=== PATIENT | male | born 1950 | race Hispanic/Latino ===

== ENCOUNTER 2020-12-13 14:11 | Emergency (ER) | payer MEDICARE ==
--- NOTE | 2020-12-13 15:37 | Emergency Department Report ---
ED Male HPI - General Chief complaint: Tube Replacement Stated complaint: URINARY INCONTIENCE Time Seen by Provider: 12/13/20 14:53 Source: patient, EMS Mode of arrival: Wheelchair Limitations: No Limitations - History of Present Illness Initial comments: CC: "THis catheter is blocked. HPI: This is a 70 yo male with hx of bladder cancer, urinary retention and ALS who presents urinary retention. Patient has indwelling sosa catheter which is not draining. No urine output for 12 hours. Severe discomfort in pelvic region. No fever. No back pain. Recently tested positive for COVID 19. Patient is currently taking antibiotics. Patient had Sosa catheter placed for the first time on Monday at [facility]. Complaint: other (Pelvic discomfort, urinary retention) -: Gradual, This morning (12 hours ago) Severity: severe Quality: dull Consistency: constant Improves with: none Worsens with: none indwelling catheter denies other symptoms - Related Data Allergies Allergy/AdvReac Type Severity Reaction Status Date / Time No Known Allergies Allergy Unverified 12/13/20 16:25 ED Review of Systems ROS: Stated complaint: URINARY INCONTIENCE Other details as noted in HPI Comment: All other systems reviewed and negative Constitutional: denies: fever, malaise Respiratory: denies: cough, shortness of breath Gastrointestinal: denies: abdominal pain, nausea, vomiting Genitourinary: hematuria, other (Retention) ED Past Medical Hx - Past Medical History Previous Medical History?: Yes Additional medical history: ALS ED Physical Exam - General Limitations: No Limitations General appearance: alert, in no apparent distress, other (Walking around room and appears in discomfort) - Head Head exam: Present: atraumatic, normocephalic - Eye Eye exam: Present: normal appearance - ENT ENT exam: Present: mucous membranes moist - Neck Neck exam: Present: normal inspection, full ROM - Respiratory Respiratory exam: Present: normal lung sounds bilaterally. Absent: respiratory distress, wheezes, rales, rhonchi - Cardiovascular Cardiovascular Exam: Present: regular rate, normal rhythm, normal heart sounds. Absent: systolic murmur, diastolic murmur, rubs, gallop - GI/Abdominal GI/Abdominal exam: Present: soft, normal bowel sounds. Absent: distended, tenderness, guarding, rebound - Rectal Rectal exam: Present: deferred - exam: Present: other (Sosa catheter in place, leg bag contains bloody urine) - Extremities Exam Extremities exam: Present: normal inspection - Neurological Exam Neurological exam: Present: alert, oriented X3, normal gait - Psychiatric Psychiatric exam: Present: normal affect, normal mood - Skin Skin exam: Present: warm, dry, intact, normal color. Absent: rash ED Course Vital Signs 12/13/20 12/13/20 14:16 17:00 Temperature 98.7 F 99.3 F Pulse Rate 138 H 130 H Respiratory 24 19 Rate Blood Pressure 146/84 Blood Pressure 113/67 [Right] O2 Sat by Pulse 95 92 Oximetry ED Medical Decision Making - Medical Decision Making Patient became much more comfortable after larger Sosa catheter 18 Turkmen was inserted: 300 cc of hematuria collected in the retention bag.. Patient has urinary retention due to hematuria. Patient is considering hospice therapy. He has metastatic bladder cancer. He also has been battling ALS for the past 8 years since 2011. Recently diagnosed with COVID-19 infection. Consequently his caregiver is unable to provide close attention. Patient is followed at [facility]. His directed EMS to our hospital for second opinion regarding his care. I explained to the patient that we do not have urological emergent coverage at this hospital. He understands that we will have to transfer him if he has recurrent obstruction of his Sosa catheter. Nursing marketing team lead demonstrated how to irrigate the Sosa catheter. Patient does not appear toxic. However he is persistently tachycardic considering patient's terminal illnesses and palliative care status, further evaluation deferred with shared decision making. Patient has follow-up with urologist tomorrow. He understands to return to the emergency department Critical care attestation.: If time is entered above; I have spent that time in minutes in the direct care of this critically ill patient, excluding procedure time. ED Disposition Clinical Impression: COVID-19, Obstructed Sosa catheter, Hematuria, Bladder cancer Disposition: DC-01 TO HOME OR SELFCARE Is pt being admited?: No Does the pt Need Aspirin: No Condition: Stable
[2020-12-13] MEDS ORDERED: LIDOCAINE 2% UROJECT 10 ML JELLY UR ONE (17:00)
[2020-12-13 17:01] VITALS: BP 113/67
== END 2020-12-13 17:56 | disposition home or self-care (01) ==
LOC: ED 14:11
DX: T83.098A Other mechanical complication of other urinary catheter, initial encounter (principal); U07.1 COVID-19; C67.9 Malignant neoplasm of bladder, unspecified; R31.9 Hematuria, unspecified; Y92.89 Other specified places as the place of occurrence of the external cause
CPT/HCPCS: 51702